=== PATIENT | female | born 1995 | race African-American/Black ===

== ENCOUNTER 2017-04-04 21:46 | Emergency (ER) | payer BC, OTHER ==
[~2017-04-04] VITALS: Ht 165.1 cm; Wt 61.0 kg
[2017-04-04 21:52] VITALS: BP 111/72; TEMP 36.7; Ht 165.1 cm; Wt 61.0 kg
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
[2017-04-04 23:07] VITALS: PULSE 70; O2SAT 100
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
== END 2017-04-04 23:05 | disposition home or self-care (01) ==
LOC: C.EDB 21:47 → C.EDD 23:05
DX: S06.0X0A Concussion without loss of consciousness, initial encounter (principal); S70.02XA Contusion of left hip, initial encounter; V49.49XA Driver injured in collision with other motor vehicles in traffic accident, initial encounter; Y93.89 Activity, other specified; Y99.8 Other external cause status; Y92.411 Interstate highway as the place of occurrence of the external cause; I10 Essential (primary) hypertension; Z98.890 Other specified postprocedural states; Z82.49 Family history of ischemic heart disease and other diseases of the circulatory system